=== PATIENT | female | born 1965 | race Hispanic/Latino ===

== ENCOUNTER 2017-11-28 09:01 | Day surgery (SDC) | payer OTHER ==
[2017-11-28] MEDS ORDERED: Propofol 10 mg/ml Inj (20 ML) ONE (10:55)
[2017-11-28] MEDS ORDERED: Lactated Ringer's 1,000 ML IV ONE (11:01)
[2017-11-28] MEDS ORDERED: Indomethacin 50 MG Suppository PR ONE ×2 (11:03→11:20)
--- NOTE | 2017-11-28 11:03 | CP.SDSHP ---
Same Day Surgery H & P - History Proposed Procedure: eus ercp Pre-Op Diagnosis: suspected choledocholithiasis - Allergies Allergies: Allergies No Known Allergies Allergy (Verified 11/23/17 18:07) - Physical Exam Vital Signs: Vital Signs 11/28/17 09:19 Temperature 97.2 F L Pulse Rate 68 Respiratory 18 Rate Blood Pressure 126/82 O2 Sat by Pulse 97 Oximetry Mental Status: Alert & Oriented x3 Neuro: WNL Heart: WNL Lungs: WNL GI: WNL - {Optional Preform as Required} Abdomen: WNL - Impression Impression: suspected choledocholithiasis Pt. Evaluated Today:Candidate for Anesthesia & Procedure: Yes - Date & Time Date: 11/28/17 Time: 11:03 Short Stay Discharge - Short Stay Discharge Admitting Diagnosis/Reason for Visit: ABNORMAL RESULTS OF LIVER FUNCTION STUDIES Disposition: HOME/ ROUTINE
[2017-11-28] MEDS ORDERED: cefTRIAXone IV 1 gm in Dextros 50 ML IVPB ONE (11:15)
[2017-11-28] MEDS ORDERED: ePHEDrine 50 mg/ml Inj ONE (11:21)
[2017-11-28 12:13] VITALS: TEMP 97.9
[2017-11-28 12:43] VITALS: O2SAT 97
[2017-11-28 12:52] VITALS: PULSE 88
--- NOTE | 2017-11-28 13:14 | RAD ---
PROCEDURE: Intraoperative Fluoroscopy. HISTORY: CHOLEDOCHOLITHIASIS FINDINGS: Fluoroscopic assistance was provided for. Please refer to the operative report from [facility]. Total fluoroscopic time (continuous mode) utilized during the procedure: 65.7 seconds.
[2017-11-28 13:47] VITALS: BP 131/67; RESP 12
== END 2017-11-28 14:15 | disposition short-term general hospital (02) ==
LOC: C.ENDO 09:01
PROVIDERS: ATTEND Internal Medicine
DX: R94.5 Abnormal results of liver function studies (principal); K80.50 Calculus of bile duct without cholangitis or cholecystitis without obstruction; R17 Unspecified jaundice; I10 Essential (primary) hypertension; F32.9 Major depressive disorder, single episode, unspecified; E66.9 Obesity, unspecified
CPT/HCPCS: 43235; 43262; 43264; 84703; C1726; J0696; J2001; J2405; J2704; J3010; J7120